=== PATIENT | female | born 1955 | race Caucasian/White ===

== ENCOUNTER 2024-07-15 17:02 | Emergency (ER) | payer BC, MEDICARE, SELFPAY ==
[2024-07-15 17:09] VITALS: BP 137/67
[2024-07-15 17:48] VITALS: BMI 28.6
--- NOTE | 2024-07-15 17:49 | ED.GENMED ---
History of Present Illness
General
Chief Complaint: Chest Pain
Source: patient
Exam Limitations: none
Time Seen by Provider: 07/15/24 17:26
Nursing documentation reviewed up to this point in time: agreed with
History of Present Illness
History of Present Illness:
Patient is a 69-year-old female with a history of A-fib status post cardioversion 4 days ago at [facility] presents to the ER for evaluation. Prior to cardioversion more than 5 days ago she started with intermittent sharp episodes of chest pain. She
reports she has had these intermittent sharp episodes where she describes as a 'sharp jabs' to the left side of her chest that last for about 30 seconds at a time. Intermittently not necessarily related she has had some intermittent tingling in her
left jaw and left arm. Her personal care attendant was aware of this prior to cardioversion and did check an EKG however instructed her to go to the nearest ER if continued.
She is presently asymptomatic however reports since being here she has had intermittent brief episodes.
She is on Xarelto and has not skipped a dose .
She is followed by [facility] cardiology DR Boaz Booth.
Scheduled for stress echo Nov ,
Review of Systems
Review of Systems
Allergies reviewed?: Yes
All Other Systems: ROS reviewed and negative except as documented in HPI and ROS
Constitutional: Reports no symptoms; Denies fever, fatigue or chills
EENT: Reports no symptoms
Respiratory: Denies trouble breathing
Cardiac: Reports chest pain; Denies palpitations
ABD/GI: Reports no symptoms
: Reports no symptoms
Musculoskeletal: Reports no symptoms
Skin: Reports no symptoms
Neurological: Reports other (tingling in left hand/arm intermittently )
Psychiatric: Reports no symptoms
Phy Exam
General Physical Exam
General Presentation: no apparent distress
General age: appears stated age
General Skin: warm and dry
General Habitus: normal
General Hydration: appears well hydrated
Cardiovascular Exam
Cardiovascular Exam: regular rate/rhythm, no murmur and normal peripheral pulses
Pulmonary Exam
Pulmonary Exam: lungs clear and no respiratory distress
Neurological Exam
Neurological Exam: alert and oriented x3
Musculoskeletal Exam
Musculoskeletal Exam: full ROM
Skin Exam
Skin Exam: normal color and warm/dry
Psychiatric Exam
Psychiatric Exam: normal mood/affect
Scores
Heart Score for Chest Pain Patients
STEMI patient?: Not applicable
Course
Orders/Labs/Results
Orders:
Orders
07/15/24 17:03
Electrocardiogram (*1) Urgent
Reason for Study: Chest Pain
EKG- Treatment ONCE
07/15/24 18:02
IV Insert/Care/Rem.- Treatment PRN
07/15/24 18:03
Cardiac Monitoring- Treatment ONCE
CR Chest - 2 Views Urgent
Comment:
Reason For Exam: cp
07/15/24 18:04
Complete Blood Count/With Diff Urgent
Comprehensive Metabolic Panel Urgent
Troponin I Urgent
Abnormal Lab Results
07/15/24
18:04
MPV 11.7 H fL
(7.4-10.4)
Absolute Monos (auto) 0.7 H 10^3/uL
(0.1-0.6)
Glucose 107 H mg/dl
(70-99)
07/15/24 18:04
07/15/24 18:04
Vital Signs
Initial and Last Documented VS:
Initial Vital Signs
Temp Pulse Resp BP Pulse Ox
98.4 F 61 16 137/67 98
07/15/24 17:09 07/15/24 17:09 07/15/24 17:09 07/15/24 17:09 07/15/24 17:09
Last Documented Vital Signs
Temp Pulse Resp BP Pulse Ox
98.4 F 52 18 130/62 93
07/15/24 17:09 07/15/24 18:00 07/15/24 18:06 07/15/24 18:00 07/15/24 18:00
MDM/Problems Addressed
MDM/Problems Addressed:
Patient is a 69-year-old female who present to the ER complaint of intermittent episodes of chest discomfort that she reports lasts several seconds at a time that she describes this as sharp jabs. She had cardioversion 4 days ago at [facility] her
personal care attendant was aware of this discomfort as she was having this prior to cardioversion. She did have an EKG prior to the cardioversion and that was successfully done. She in addition has had intermittent numbness and tingling in her left arm and
left hand not associate with the chest pain. She presented here because of continued intermittent episodes of chest pain. She presented asymptomatic though prior to my exam she had several episodes while here in the ER that were lasting seconds at
a time. She presents awake alert no acute distress no acute findings on EKG negative cardiac troponin and negative chest x-ray. Patient is scheduled for stress echo with her personal care attendant jul 26 .
PT is describing symptoms of pain as sharp jabs left is lasting seconds at a time not likely consistent with cardiac chest pain and with negative cardiac troponin will safely discharge home with outpatient with her personal care attendant. no SOB.
Chronic conditions affecting care:
afib /CV on xarelto
*Radiology
Radiology exam reviewed: radiology read reviewed
*Pulse Oximetry
Patient hypoxic: no
*EKG
Interpreted by ED Provider?: Yes
Heart Rate: 58
Rate: bradycardiac
Rhythm: sinus
Ischemia: no ischemia
*Critical Care Note
Total Time (30-74mins, 75-104mins- exclusive of procedures): Not Applicable
ED Attending Note
-
Portions of this chart may have been created with voice recognition software.� Occasional wrong word or��sound alike� substitutions may have occurred due to the inherent limitations of voice recognition software.
Discharge Plan
Departure
Patient Disposition: Home (Routine Discharge)
Date of Disposition: 07/15/24
Time of Disposition: 20:57
Patient with high blood pressure during this ER visit?: Yes
Condition: Fair
Covid-19: Not Applicable
Discharge Problem:
Chest pain
Instructions: Chest Pain NON-[facility] [employer] Follow Up
Referrals:
Lindsay Morris MD [Family Provider] -
Activity Restrictions/Additional Instructions:
As discussed continue all of your present medications and follow-up with your personal care attendant as scheduled for reevaluation of your stress echocardiogram. Return if any worsening of symptoms.
Interventions
Interventions:
*Risk Screen - Suicide Last Done: 07/15/24 17:48
*General Assessment Last Done: 07/15/24 17:48
*Neglect/Abuse Screening Last Done: 07/15/24 17:48
ED- Fall Risk Assessment Last Done: 07/15/24 17:52
*ED COVID-19 Vaccine History Last Done: 07/15/24 17:14
ED- Cardiac Assessment Last Done: 07/15/24 17:52
Discharge Date and Time
Print Language: SAMI
[2024-07-15 17:57] VITALS: BP 129/58
[2024-07-15 18:00] VITALS: BP 130/62
[2024-07-15 18:12] LABS: % Basophils 0.8 % (0-2); % Eosinophils 1.1 % (0-6); % Immature Granulocytes 0.3 % (0-0.5); % Monocytes 9.1 % (1.7-9.3); % Neutrophils 58.7 % (42.2-75.2); Absolute Basophils 0.1 10^3/uL (0-0.2); Absolute Eosinophils 0.1 10^3/uL (0-0.7); Absolute Lymphocytes 2.2 10^3/uL (1.2-3.4); Absolute Monocytes 0.7 10^3/uL (0.1-0.6); Absolute Neutrophils 4.3 10^3/uL (1.4-6.5); Hematocrit 41.8 % (37.0-47.0); Hemoglobin 14.3 g/dL (12.0-16.0); Mean Corp Hgb Conc. 34.2 g/dL (33.0-37.0); Mean Corpuscular Hgb 30.1 pg (27.0-31.0); Mean Platelet Volume 11.7 fL (7.4-10.4); Nucleated Red Blood Cells % 0 %; Platelet Count 214 10^3/uL (130-400); Red Blood Cell Count 4.75 10^6/uL (4.20-5.40); Red Cell Dist. Width 13.2 % (11.5-14.5); White Blood Cell Count 7.4 10^3/uL (4.8-10.8)
[2024-07-15 18:37] LABS: Troponin I < 0.012 ng/ml
[2024-07-15 18:39] LABS: ALT (SGPT) 22 U/L (0-35); AST (SGOT) 26 U/L (14-36); Albumin 4.3 g/dl (3.5-5.0); Alkaline Phosphatase 63 U/L (38-126); Blood Urea Nitrogen 15 mg/dl (7-17); Calcium 9.2 mg/dl (8.4-10.2); Carbon Dioxide 26 mmol/L (22-30); Chloride 105 mmol/L (98-107); Estimated Creatinine Clearance 78 ml/min; Glucose 107 mg/dl (70-99); Potassium 4.1 mmol/L (3.5-5.1); Sodium 142 mmol/L (135-145); Total Bilirubin 0.6 mg/dl (0.2-1.3); Total Protein 6.8 g/dl (6.3-8.2); eGFR > 60.00
[2024-07-15 20:00] VITALS: BP 126/67
[2024-07-15 21:00] VITALS: BP 141/65
== END 2024-07-15 21:21 | disposition home or self-care (01) ==
LOC: EMR 17:02
PROVIDERS: Nurse Practitioner; EMERGENCY PHYSICIAN Emergency Medicine; FAMILY PHYSICIAN Internal Medicine
DX: R07.89 Other chest pain (principal); I48.91 Unspecified atrial fibrillation; Z79.01 Long term (current) use of anticoagulants
CPT/HCPCS: 99283; 71046; 80053; 84484; 85025; 93005